=== PATIENT | male | born 1995 | race Caucasian/White ===

== ENCOUNTER 2020-09-22 19:46 | Emergency (ER) | payer OTHER ==
[~2020-09-22] VITALS: Ht 182.8 cm; Wt 90.7 kg
== END 2020-09-22 21:07 | disposition home or self-care (01) ==
LOC: ED 19:46
DX: S05.01XA Injury of conjunctiva and corneal abrasion without foreign body, right eye, initial encounter (principal); W22.8XXA Striking against or struck by other objects, initial encounter; Y93.89 Activity, other specified; Y92.89 Other specified places as the place of occurrence of the external cause; Y99.8 Other external cause status